=== PATIENT | female | born 1950 | race Two or more races ===

== ENCOUNTER 2023-01-17 18:57 | Emergency (ER) | payer OTHER ==
[~2023-01-17] VITALS: Ht 152.4 cm; Wt 81.6 kg
[2023-01-17] MEDS ORDERED: KATERZIA1 MG/1 ML (19:26)
[2023-01-17] MEDS ORDERED: GLIPIZIDE XL10 MG PO (19:26)
[2023-01-17] MEDS ORDERED: GLUMETZA500 MG PO (19:27)
[2023-01-17] MEDS ORDERED: EZALLOR SPRINKL20 MG PO (19:27)
[2023-01-17] MEDS ORDERED: MEDI-MECLIZINE25 MG PO (21:53)
== END 2023-01-17 22:08 | disposition home or self-care (01) ==
LOC: ER 18:57
DX: R42 Dizziness and giddiness (principal); E11.9 Type 2 diabetes mellitus without complications; I10 Essential (primary) hypertension; Z79.84 Long term (current) use of oral hypoglycemic drugs